=== PATIENT | female | born 1980 | race Caucasian/White ===

== ENCOUNTER 2018-08-14 10:04 | Emergency (ER) | payer OTHER ==
[~2018-08-14] VITALS: Ht 162.6 cm; Wt 81.7 kg
[2018-08-14] MEDS ORDERED: ESCI20 PO (11:25)
[2018-08-14] MEDS ORDERED: Adipex-P37.5 MG PO (11:25)
[2018-08-14] MEDS ORDERED: HYDHCL25 (11:25)
[2018-08-14] MEDS ORDERED: IBUP800 PO (12:31)
== END 2018-08-14 12:45 | disposition home or self-care (01) ==
LOC: ER 10:04
DX: M77.9 Enthesopathy, unspecified (principal); Z91.048 Other nonmedicinal substance allergy status; Z87.891 Personal history of nicotine dependence; Z79.899 Other long term (current) drug therapy
CPT/HCPCS: 73610; 73630; J1885

== ENCOUNTER 2018-10-18 03:27 | Emergency (ER) | payer OTHER ==
[~2018-10-18] VITALS: Ht 162.6 cm; Wt 87.1 kg
[~2018-10-18 03:27] MED LIST: Adipex-P37.5 MG PO; ESCI20 PO; HYDHCL25; IBUP800 PO
[2018-10-18] MEDS ORDERED: Norco 5-325 Ta1 EACH PO (06:45)
== END 2018-10-18 07:10 | disposition home or self-care (01) ==
LOC: ER 03:27
DX: S92.514A Nondisplaced fracture of proximal phalanx of right lesser toe(s), initial encounter for closed fracture (principal); W22.8XXA Striking against or struck by other objects, initial encounter; Z87.891 Personal history of nicotine dependence; Z91.048 Other nonmedicinal substance allergy status; Z79.899 Other long term (current) drug therapy
CPT/HCPCS: 73630; 99283-25; A9270-GY

== ENCOUNTER → 2019-01-21 | Outpatient (CLI) | payer OTHER ==
[~2019-01-21] MED LIST changes: +Norco 5-325 Ta1 EACH PO
[2019-01-26 15:06] LABS: HPV 16 Negative (Negative); HPV 18 Negative (Negative); HPV OTHER HR TYPES Negative (Negative)
== END ==
LOC: LAB SHORT 17:57 → LAB 17:57
PROVIDERS: Registered Nurse Community Health
DX: Z12.4 Encounter for screening for malignant neoplasm of cervix (principal); N94.89 Other specified conditions associated with female genital organs and menstrual cycle
CPT/HCPCS: 87529; 87624; G0123

== ENCOUNTER 2019-05-21 09:51 | Emergency (ER) | payer OTHER ==
[~2019-05-21] VITALS: Ht 165.1 cm; Wt 86.2 kg
[2019-05-21 10:34] LABS: Influenza A Negative (NEGATIVE); Influenza B Negative (NEGATIVE)
== END 2019-05-21 11:11 | disposition home or self-care (01) ==
LOC: ER 09:51
PROVIDERS: Physician Assistant
DX: Z20.828 Contact with and (suspected) exposure to other viral communicable diseases (principal); Z87.891 Personal history of nicotine dependence
CPT/HCPCS: 87804; 99283

== ENCOUNTER → 2020-01-24 | Outpatient (CLI) | payer OTHER | LOC: LAB 11:10 → LAB SHORT 11:10 | DX: J02.9 Acute pharyngitis, unspecified (principal) | CPT/HCPCS: 87081 ==

== ENCOUNTER 2020-03-02 08:11 | Day surgery (SDC) | payer OTHER ==
[~2020-03-02] VITALS: Ht 165.1 cm; Wt 84.8 kg
[~2020-03-02 08:11] MED LIST changes: +AMIT25 PO; +TOPI25 PO
[2020-03-02] MEDS ORDERED: ESCI20 (08:53)
--- NOTE | 2020-03-02 09:33 | NUR ---
03/02/20 0933 Boogie Tejada ABDOMINAL AREA PREPPED BY [email or web address] JENIFER AREA PREPPED BY [email or web address] IQBAL SCAB & A FEW SMALL BRUISES ON LEFT UPPER THIGH.
--- NOTE | 2020-03-02 11:08 | NUR ---
03/02/20 Wendie Plata PT.STATES COMFORTABLE ENOUGH TO GO HOME. DISCHARGE INSTRUCTIONS GIVEN AND DC HOME WITH ALL BELONGING.
== END 2020-03-02 11:05 | disposition home or self-care (01) ==
LOC: ORSCSDS 08:11
PROVIDERS: Obstetrics & Gynecology
PROC: 0UT74ZZ Resection of Bilateral Fallopian Tubes, Percutaneous Endoscopic Approach (ICD-10-PCS; principal; 2020-03-02 09:30)
DX: Z30.2 Encounter for sterilization (principal); N80.3 Endometriosis of pelvic peritoneum; Z87.891 Personal history of nicotine dependence; Z79.899 Other long term (current) drug therapy
CPT/HCPCS: 88302; A9270; J0171; J0690; J1100; J1885; J2250; J2405; J2704; J3010; J7120

== ENCOUNTER 2021-04-12 01:35 | Emergency (ER) | payer OTHER ==
[~2021-04-12] VITALS: Ht 162.6 cm; Wt 81.7 kg
[~2021-04-12 01:35] MED LIST changes: +ESCI20
[2021-04-12] MEDS ORDERED: AMPDEX10CR PO (02:18)
[2021-04-12] MEDS ORDERED: CYCL10 PO (03:33)
== END 2021-04-12 03:45 | disposition home or self-care (01) ==
LOC: ER 01:35
DX: M94.0 Chondrocostal junction syndrome [Tietze] (principal); Z91.048 Other nonmedicinal substance allergy status; Z79.899 Other long term (current) drug therapy; Z87.891 Personal history of nicotine dependence
CPT/HCPCS: 36415; 71100; 96374; 99283-25; A9270; J1885

== ENCOUNTER → 2022-04-02 | Outpatient (CLI) | payer OTHER ==
[~2022-04-02] MED LIST changes: +AMPDEX10CR PO; +CYCL10 PO
== END | disposition home or self-care (01) ==
LOC: LAB 15:37 → LAB SHORT 15:37
DX: R31.9 Hematuria, unspecified (principal)
CPT/HCPCS: 87086

== ENCOUNTER → 2022-12-17 | Outpatient (CLI) | payer OTHER ==
[2022-12-17 17:52] LABS: Albumin, Blood 4.1 g/dL (3.4-5.0); Anion Gap 8 mmol/L (6-16); Blood Urea Nitrogen 5 mg/dL (8-24); Bun/Creatinine Ratio 4.8 (12.0-20.0); CO2, Blood 25 mmol/L (21-32); Calcium, Blood 9.9 mg/dL (8.5-10.1); Chloride, Blood 106 mmol/L (98-108); Creatinine, Blood 1.04 mg/dL (0.40-1.00); Free Thyroxine 1.01 ng/dL (0.70-1.60); Glomerular Filtration Rate 69 (60-); Glucose, Blood 94 mg/dL (70-99); Phosphorus, Blood 4.3 mg/dL (2.5-4.9); Potassium, Blood 4.7 mmol/L (3.5-5.5); Sodium, Blood 139 mmol/L (136-145)
[2022-12-18 16:16] LABS: HEMOGLOBIN A1C 5.5 % (4.8-5.6)
== END ==
LOC: LAB SHORT 11:50 → LAB 11:50
PROVIDERS: Family Medicine
DX: N18.2 Chronic kidney disease, stage 2 (mild) (principal); E06.3 Autoimmune thyroiditis; R73.03 Prediabetes
CPT/HCPCS: 80069; 83036; 84439; 84443